=== PATIENT | male | born 1950 | race Caucasian/White ===

== ENCOUNTER 2016-11-15 07:10 | Inpatient (IN) | payer MEDICARE, OTHER ==
[~2016-11-15] VITALS: Ht 172.7 cm; Wt 69.4 kg
[2016-11-15] MEDS ORDERED: MULT-717 PO (07:29)
[2016-11-15] MEDS ORDERED: ATOR80TA PO (07:29)
[2016-11-15] MEDS ORDERED: UBID100C41 PO (07:29)
[2016-11-15] MEDS ORDERED: AMLO5TAB4 PO (07:29)
[2016-11-15] MEDS ORDERED: METF500T4 PO (07:29)
[2016-11-15] MEDS ORDERED: LOSA50TA2 PO (07:29)
[2016-11-15] MEDS ORDERED: SILD25TA PO (07:29)
[2016-11-15] MEDS ORDERED: ASPI-496 PO (07:29)
[2016-11-15] MEDS ORDERED: TRAZ50TA18 PO (07:29)
[2016-11-15] MEDS ORDERED: IRON18TA PO (07:29)
[2016-11-15] MEDS ORDERED: CARV6.2512 PO (07:29)
[2016-11-15] MEDS ORDERED: MAGN400T7 PO (07:29)
[2016-11-15] MEDS ORDERED: SODIUM CHLORIDE 0.9% 1,000ML IVBOLUS ONE (07:30)
[2016-11-15] MEDS ORDERED: BACITRACIN ZINC OINT 500U/GM, 0.9 GM ONE (07:38)
[2016-11-15 07:43] LABS: HEMATOCRIT 39.4 % (39.2-51.8); HEMOGLOBIN 13.1 g/dL (13.7-18.0); WHITE BLOOD COUNT 9.7 x10^3/uL (3.4-10)
[2016-11-15 07:55] LABS: ASPARTATE AMINO TRANSFERASE 18 U/L (15-37); BLOOD UREA NITROGEN 8 mg/dL (7-18)
[2016-11-15] MEDS ORDERED: LORazepam 2 MG/ML, 1ML ONE ×2 (08:10→08:41)
[2016-11-15] MEDS ORDERED: LORazepam 2 MG/ML, 1ML IVPush ONE ×2 (08:30→09:00)
[2016-11-15] MEDS ORDERED: POTASSIUM CHLORIDE 20 MEQ, MAGNESIUM SULFATE 1 GM, MVI ADULT 10 ML, THIAMINE 100 MG, FO... IV SCH (10:31)
[2016-11-15] MEDS ORDERED: LORazepam 2 MG/ML, 1ML IV PRN (11:00)
[2016-11-15] MEDS ORDERED: ACETAMINOPHEN 650 MG/20.3 ML UDC PO PRN (11:00)
[2016-11-15 14:00] VITALS: BP 157/71
[2016-11-15] MEDS: HEPARIN 5,000 UNITS/ML, 1ML SQ SCH ×2 (14:00→15:43)
[2016-11-15] MEDS: SODIUM CHLORIDE 0.9% 1,000 ML IV SCH (14:19)
[2016-11-15] MEDS: LEVETIRACETAM 1,000 MG in SODIUM CHLORIDE 0.9% 100 ML IV SCH (15:23)
[2016-11-15 17:15] LABS: DAU SCREEN DISCLAIMER
[2016-11-15 17:23] LABS: PATH.CAST-FLAG NOT PRESENT; SPERM-FLAG NOT PRESENT; SRC-FLAG NOT PRESENT; XTAL-FLAG NOT PRESENT; YLC-FLAG NOT PRESENT
[2016-11-15 18:03] VITALS: BP 157/71
[2016-11-15 20:15] VITALS: BP 148/65
[2016-11-15] MEDS: AMLODIPINE 5 MG TABLET PO SCH (20:18)
[2016-11-15] MEDS: CARVEDILOL 6.25 MG TABLET PO SCH (20:18)
[2016-11-15] MEDS: metFORMIN 500 MG TABLET PO SCH (21:00)
[2016-11-15] MEDS ORDERED: TRAZODONE 50MG TABLET PO SCH (21:00)
[2016-11-16 01:40] VITALS: BP 157/76
[2016-11-16] MEDS: SODIUM CHLORIDE 0.9% 1,000 ML IV SCH (03:28)
[2016-11-16] MEDS: LEVETIRACETAM 1,000 MG in SODIUM CHLORIDE 0.9% 100 ML IV SCH (03:28)
[2016-11-16 04:52] LABS: HEMATOCRIT 36.2 % (39.2-51.8); HEMOGLOBIN 12.1 g/dL (13.7-18.0); WHITE BLOOD COUNT 8.5 x10^3/uL (3.4-10)
[2016-11-16 05:06] LABS: ASPARTATE AMINO TRANSFERASE 26 U/L (15-37); BLOOD UREA NITROGEN 10 mg/dL (7-18)
[2016-11-16] MEDS: metFORMIN 500 MG TABLET PO SCH ×2 (07:44→21:36)
[2016-11-16 07:45] VITALS: BP 150/67
[2016-11-16] MEDS: HEPARIN 5,000 UNITS/ML, 1ML SQ SCH ×3 (07:49→16:14)
[2016-11-16] MEDS: AMLODIPINE 5 MG TABLET PO SCH ×2 (07:50→21:36)
[2016-11-16] MEDS: CARVEDILOL 6.25 MG TABLET PO SCH ×2 (07:57→21:39)
[2016-11-16] MEDS ORDERED: FERROUS SULFATE 325 MG TABLET PO SCH (09:00)
[2016-11-16] MEDS ORDERED: LOSARTAN 50MG TABLET PO SCH (09:00)
[2016-11-16] MEDS ORDERED: ASPIRIN 81 MG TABLET EC PO SCH (09:00)
[2016-11-16] MEDS ORDERED: TEMPLATE NON-FORMULARY MED. (Ubidecarenone** (Co Q-10**) 300 MG) PO SCH (09:00)
[2016-11-16] MEDS ORDERED: MAGNESIUM OXIDE 400 MG TABLET PO SCH (09:00)
[2016-11-16] MEDS ORDERED: MULTIVIT.W/IRON, MINERALS ORAL SOL PO SCH (09:00)
[2016-11-16 12:36] VITALS: BP 118/56
[2016-11-16 18:45] VITALS: BP 139/64
[2016-11-16] MEDS ORDERED: ACETAMINOPHEN 650 MG/20.3 ML UDC PO PRN (19:00)
[2016-11-16] MEDS ORDERED: LORazepam 2 MG/ML, 1ML IV PRN (19:00)
[2016-11-16] MEDS ORDERED: TRAZODONE 50MG TABLET PO SCH (21:00)
[2016-11-16] MEDS: LEVETIRACETAM 500 MG TABLET PO SCH (21:37)
[2016-11-17] MEDS: HEPARIN 5,000 UNITS/ML, 1ML SQ SCH ×2 (00:16→08:52)
[2016-11-17 00:54] VITALS: BP 132/75
[2016-11-17 06:30] VITALS: BP 161/67
[2016-11-17] MEDS: metFORMIN 500 MG TABLET PO SCH (08:52)
[2016-11-17] MEDS: LEVETIRACETAM 500 MG TABLET PO SCH (08:53)
[2016-11-17] MEDS: AMLODIPINE 5 MG TABLET PO SCH (08:53)
[2016-11-17] MEDS: CARVEDILOL 6.25 MG TABLET PO SCH (08:54)
[2016-11-17] MEDS ORDERED: FERROUS SULFATE 325 MG TABLET PO SCH (09:00)
[2016-11-17] MEDS ORDERED: MAGNESIUM OXIDE 400 MG TABLET PO SCH (09:00)
[2016-11-17] MEDS ORDERED: LOSARTAN 50MG TABLET PO SCH (09:00)
[2016-11-17] MEDS ORDERED: ATORVASTATIN 80 MG TABLET PO SCH (09:00)
[2016-11-17] MEDS ORDERED: ASPIRIN 81 MG TABLET EC PO SCH (09:00)
[2016-11-17] MEDS ORDERED: MULTIVIT.W/IRON, MINERALS ORAL SOL PO SCH (09:00)
[2016-11-17] MEDS ORDERED: LEVE500T53 PO (14:02)
== END 2016-11-17 14:30 | disposition home or self-care (01) | DRG 101 ==
LOC: ED 08:53 → EDIP 08:54 → ED 09:08 → 4WST 12:28
DX: G40.909 Epilepsy, unspecified, not intractable, without status epilepticus (principal); J44.9 Chronic obstructive pulmonary disease, unspecified; I10 Essential (primary) hypertension; E11.9 Type 2 diabetes mellitus without complications; E78.00 Pure hypercholesterolemia, unspecified; E78.5 Hyperlipidemia, unspecified; F17.200 Nicotine dependence, unspecified, uncomplicated; I25.10 Atherosclerotic heart disease of native coronary artery without angina pectoris; R32 Unspecified urinary incontinence; Z95.5 Presence of coronary angioplasty implant and graft; Z79.899 Other long term (current) drug therapy
CPT/HCPCS: 36415; 70450; 70551; 80053; 80307; 81001; 82550; 82962; 85025; 93005; 95819; 96374; J1644; J1953; J2060; J7030